=== PATIENT | male | born 1990 | race Caucasian/White ===

== ENCOUNTER 2019-08-28 22:35 | Emergency (ER) | payer MEDICAID, SELFPAY ==
[2019-08-28] VITALS (9 sets, daily range): BP systolic 123–165; BP diastolic 83–106; PULSE 59–77; RESP 11–22; TEMP 36.3; O2SAT 97–100
--- NOTE | 2019-08-28 22:56 | ED.GENADUL_ITS ---
Discharge Plan Disposition Patient Disposition: HOME Discharge Details Chief Complaint: Cellulitis Clinical Impression: Cutaneous abscess of perineum Primary Care Provider: Alverto Ferrer ED Provider: Ty Barajas Home Meds and New Rx's Prescriptions: New cephalexin [Keflex] 500 mg capsule 500 mg PO QID Qty: 39 RF: 0 No Action ibuprofen 200 mg capsule 200 mg PO Q6H PRNRF: 0 Discharge Instructions Instructions: Abscess (ED) Additional Instructions: Please take ibuprofen over the counter. Take 600mg by mouth every 6 hours as needed for pain. Please take acetaminophen (tylenol) - 650mg every 6 hours by mouth as needed for pain. Please take antibiotics as prescribed. Please follow-up with general surgery. Call to schedule an appointment to be seen this week. Return to the ER immediately for any worsening or new concerning symptoms. Stand Alone Forms: Work Release Referrals: Mindy Manzo MD [ [facility] STAFF PHYSICIAN] - Discharge Data Discharge Date/Time-TO BE ENTERED AT DEPARTURE: 08/29/19 00:40 Medical Decision Making <Des Llanos MD - Last Filed: 09/20/19 17:15> 23:20 -- 28-year-old male here with recurrent swelling and tenderness midline perineum. Mild erythema localized to the area with no crepitus. Patient is afebrile and hemodynamically stable. Fingerstick gluc nl. I called and spoke with Dr. Manzo, on-call for surgery, I discussed ED presentation and and my concerns for perineal abscess. I relayed physical findings and history. Dr. Manzo recommends bedside incision and drainage be performed by me. She recommended a small wick be placed. She recommended di scharge on oral antibiotics with plan for follow-up in the clinic for reassessment this week. Plan for procedural sedation and incision and drainage. We will give Ancef IV. 23:55 --Incision of drainage performed under procedural sedation was provided by Dr. Barajas. Purulent drainage was sent for culture. Quarter inch gauze was used to pack the abscess and provide wick. Plan will be for discharge with outpatient follow-up to be scheduled for early this week. <Ty Barajas DO - Last Filed: 08/29/19 00:26> 28-year-old male who presented with perineal abscess, was seen and assessed by Dr. Des Llanos, sedated and had an incision and drainage performed by Dr. Llanos, where I performed the sedation. Sedation component went very well with no complications using ketofall. Patient was signed out to me for the medication wear off and his antibiotics to finish. On reassessment the patient is doing extremely well, he demonstrates normal vital signs, he is back to his normal mental status, and shows no signs of residual anesthesia effect. He is finished his antibiotics and is done well. I have given him a work note at his request. We again discussed the discharge instructions and he was able to repeat them all, and was also easily heard by the family member who was in the room. Patient will be discharged home with follow-up with surgery. Discussed red flags which to return. I have extensively reviewed the treatment plan and discharge instructions with the patient and their family. I have addressed all patient concerns at this time. The patient and family was made aware of what symptoms to monitor for that would warrant a return to the emergency department. Discussed the plan with the patient and family, they demonstrate verbal understanding and agreement with our assessment and plan at this time. HPI <Des Llanos MD - Last Filed: 09/20/19 17:15> General Mode of arrival: ambulatory . Date/Time Provider Initiated Documentation: 08/28/19 22:38 . Limitations to Documentation: no limitations . Information obtained by: patient . HPI Narrative: 28-year-old male smoker presents with chief complaint of painful perineum. Symptoms started 2 to 3 days ago and have persisted and worsened since onset. Worse on palpation. Pain is currently severe. He has associated swelling in the area. No fever. Patient apparently had same inflammation 4 months ago. He was seen at outside hospital in [place], had CT imaging and was told he had a cyst and that he was to follow-up with general surgery. He was prescribed an antibiotic. Unfortunately was uninsured at the time and did not follow-up with surgery. Inflammation did resolve with antibiotics. Related Data Home Medications Medication Instructions Recorded Confirmed cephalexin [Keflex] 500 mg PO QID #39 cap 08/28/19 08/30/19 ibuprofen 200 mg capsule 200 mg PO Q6H PRN 08/30/19 08/30/19 Previous Rx's Medication Instructions Recorded cephalexin [Keflex] 500 mg PO QID #39 cap 08/28/19 Allergies Allergy/AdvReac Type Severity Reaction Status Date / Time No Known Allergies Allergy Verified 08/30/19 11:20 General Stated Complaint: Cellulitis PEREZ: 4 Review of Systems <Des Llanos MD - Last Filed: 09/20/19 17:15> Constitutional Constitutional: Denies fever(s) Genitourinary Genitourinary: Denies genital lesions and Denies dysuria PFSH <Des Llanos MD - Last Filed: 09/20/19 17:15> Medical History (Updated 08/30/19 @ 11:36 by Mindy Manzo MD) No acute medical problems (Acute) Perineal abscess (Acute) Surgical History (Updated 08/30/19 @ 11:36 by Mindy Manzo MD) Status post incision and drainage (Acute ~08/28/19) Family History Mother Depression Hypertension Father Alcohol abuse Depression Substance abuse Sister Alcohol abuse Depression Substance abuse Maternal Grandfather Alcohol abuse Cancer Hypertension Paternal Grandfather Alcohol abuse Asthma Cancer Depression Maternal Grandmother Alcohol abuse Depression Diabetes Hypertension Paternal Grandmother Cancer Hypertension Social History Smoking/Tobacco Use Status: Current every day Tobacco Type: cigarettes Tobacco: How many years used: 11 Quit status: not considering quitting Smoking risk assessment performed?: Yes Alcohol Intake: current Alcohol Intake frequency: holidays/special occasions only Alcohol type: beer and hard liquor Drug use: Occasionally Substance use type: marijuana Caregiver/Support person: No Household members: family Housing: apartment Communication Needs: None Do you need help understanding health information?: Often Pets and animals: Yes Pets and animals: dog(s) Sexually active: Yes Do you think of yourself as: straight/heterosexual Current gender identity: male What is your relationship status?: living with partner How often do you talk on the phone with friends or family?: three or more times per week How often do you get together with friends or relatives?: three or more times per week How often do you attend sikh or rastafarian services?: decline to answer Do you belong to any clubs or organized social groups?: no Panel score (0-1 are the most socially isolated patients): 2 What type of physical activity do you participate in: none Frequency: does not exercise Anna/Jain: None Special anna needs: No Seatbelt use: always Helmet use: Yes Helmet use: always Drive intox or ride w/intox 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 Additional Social history: pt is not alone to assess privately Exam <Des Llanos MD - Last Filed: 09/20/19 17:15> Const General: cooperative and no acute distress HENMT Mouth: moist mucous membranes Throat: posterior oropharynx normal Eyes Conjunctivae: normal conjunctivae Resp Auscultation: clear to auscultation bilaterally, no rales, no rhonchi and no wheezes Cardio Jugular venous pressure: no JVD Rate: regular rate and not tachycardic Rhythm: regular rhythm GI Palpation: soft, not firm, no guarding, no masses, not rigid and nontender Skin Lesions: lesion noted (2x3cm area of fluctuance midline perineum with no erythema or crepitus) Neuro General: alert, awake and tone normal Extrem General: no edema Psych Appearance: grossly normal Mental Status: mental status grossly normal Course <Des Llanos MD - Last Filed: 09/20/19 17:15> Vital Signs Vital signs: Vital Signs Temperature 36.3 C L 08/28/19 22:40 Pulse 77 08/28/19 22:40 Respiratory Rate 18 08/28/19 22:40 Blood Pressure 140/103 H 08/28/19 22:40 Pulse Oximetry 97 08/28/19 22:40 Temperature 36.3 C L 08/28/19 22:40 Temperature Source Skin 08/28/19 22:40 Pulse 77 08/28/19 22:40 Respiratory Rate 18 08/28/19 22:40 Respiratory Effort Non-Labored 08/28/19 22:43 Blood Pressure 140/103 H 08/28/19 22:40 Pulse Oximetry 97 08/28/19 22:40 Pain Level 8 08/28/19 22:40 Procedures <Des Llanos MD - Last Filed: 09/20/19 17:15> Abscess I/D Site: Other (perineum) Sedation/analgesia: Propofol and Other (ketamine) Local Anesthetic: Lidocaine 2% and With Epi Amount of anesthesia used (mL): 6 Technique: Incised with #11 Blade (1cm superficial incision ) Amount of fluid expressed (mL): 8 Irrigation: Yes Packing used?: Iodoform <Ty Barajas DO - Last Filed: 08/29/19 00:26> Procedural Sedation Indication: incision and drainage of absess ASA Class: I Time of Last PO Intake: 18:00 Preparation: cardiac specialist applied, pulse oximeter, capnometry used, suppleme ntal O2 applied, suction/airway equipment at bedside and IV secured Ketamine: IV Ketamine dose (mg): 60 IV Propofol dose (mg): 60 Patient Tolerated Procedure: well and no complications Complications: none Sign Out <Des Llanos MD - Last Filed: 09/20/19 17:15> Sign Out Data: Sign Out Comment: Care signed out to Dr. Barajas with plan to reassess patient post procedurally and disposition patient. Last updated by Des Llanos MD at 08/28/19 23:54
[2019-08-28] MEDS: ceFAZolin 1 GM/50 ML BAG IVPB (23:52)
[2019-08-28] MEDS: Propofol 200 MG/20 ML VIAL 100 MG IVP (23:52)
[2019-08-29] VITALS (7 sets, daily range): BP systolic 128–141; BP diastolic 70–88; PULSE 69–84; RESP 12–20; O2SAT 99
--- NOTE | 2019-08-29 00:21 | RESPIRATORY ---
08/28/19-Pt here for a sedation with a scrotal abscess. BP 123//83.Pre- HR 77, SPO2 99% on 2 LPM NC, ETCO2 40mmhg, RR 20. During HR 70,100% on 2 LPM NC. ETCO2 31mmhg, RR 14, BP 165/106. Post BP 128/70, HR 68, SPO2 99%, ETCO2 31mmhg, RR 20. Pt is now alert and talking.
== END 2019-08-29 00:40 | disposition home or self-care (01) ==
PROVIDERS: Emergency Provider Student in an Organized Health Care Education/Training Program; PCP Family Medicine
DX: L02.215 Cutaneous abscess of perineum (principal)
CPT/HCPCS: 36416; 46050; 82962; 96365; 96375; 99284; 87070; 99282; J0690; J2704

== ENCOUNTER 2020-10-15 23:13 | Emergency (ER) | payer MEDICAID, SELFPAY ==
--- NOTE | 2020-10-15 23:35 | ED.GENADUL_ITS ---
Discharge Plan Disposition Patient Disposition: HOME Condition: Good Discharge Details Clinical Impression: Back pain Primary Care Provider: Alverto Ferrer ED Provider: Ty Barajas Home Meds and New Rx's Prescriptions: New cyclobenzaprine 10 mg tablet 10 mg PO TID Qty: 14 RF: 0 lidocaine [Lidoderm] 1 PATCH patch 1 patch Topical Q24H Qty: 5 RF: 0 prednisone 50 MG tablet 50 mg PO DAILY Qty: 5 RF: 0 Continued ibuprofen 200 mg capsule 200 mg PO Q6H PRNRF: 0 Discharge Instructions Instructions: Back Pain (ED) Additional Instructions: At this time your signs and symptoms are clinically consistent with a back sprain. This can cause significant pain and take a fair bit of time to heal. I expect 1 to 2 months for potential resolution. In the meantime do not lift anything greater than 5 pounds for the next 2 weeks. Avoid any significant vigorous physical activity. Perform easy gentle regular activities at home without any significant bending or lifting. Please take the steroids as directed. You have been given a prescription for Lidoderm patch. If your insurance does not cover this you can get [id number] Lidoderm patches at 4% which are almost just as effective. Please take the Flexeril as directed but do not take it when driving or operating any vehicles or heavy machinery, swimming, taking long baths, or operating firearms. Please use a heating pad as often as possible on your back. Perform daily gentle stretches on your back. Please continue to take the Tylenol and Motrin. You can take 1000 mg of Tylenol every 6 hours and 600 mg of ibuprofen every 6 hours. If you notice any worsening of your symptoms, or any new symptoms such as vomiting, diarrhea, fever, chills, shortness of breath, chest pain, numbness or tingling in your groin or legs, weakness in your legs, loss of control for your bowels or bladder, or fainting , please return immediately to the emergency department for reevaluation. Please follow up with your primary care provider as soon as possible for reassessment and reevaluation. As always, it was a pleasure participating in your medical care today. Stand Alone Forms: Work Release Referrals: Alverto Ferrer. [Primary Care Provider] - Discharge Data Discharge Date/Time-TO BE ENTERED AT DEPARTURE: 10/15/20 23:45 Medical Decision Making This is a 30-year-old male who presents today for back pain. Patient states he has a history of throwing out his back in the past. 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 He states that he has had particularly 2-3 busy days with a significant amount of work, lifting, and back movements over the last few days. He states that gradually towards the end of his work his pain began to increase in his back and he developed a mild sore back in the left lower region, went to bed last night and when he woke up his back was notably worse throughout the day today. He also developed some mild tingling on the lateral aspect of his left lower extremity medially. He denies any focal episode that suddenly worsened his pain. He denies hearing any popping sounds in his back. Patient denies any saddle anesthesia, numbness or tingling in the groin, change in sensation when wiping. Patient denies any change in sensation during sexual intercourse, difficulty achieving or maintaining an erection or ej aculation, bowel or bladder incontinence, leakage, or retention. Patient denies any weakness in the lower extremities, atypical falls or imbalance. He has no other complaints at this time. He denies any history of IV or illicit drug use. He denies any fever or chills. He denies any trauma to his back. Exam is notably reassuring. He demonstrates left lower lumbar paraspinal spasm with mild tenderness. No evidence of significant midline tenderness. No saddle anesthesia, he has good reflexes, good neurovascular exam. Good sensation throughout. Symptoms are clinically inconsistent at this time with cauda equina syndrome, spinal epidural abscess, or significant neurovascular compromise. No indication for emergent MRI or radiographic imaging at this time. With the notable paraspinal spasm, I suspect he has mild peripheral nerve irritation in conjunction with notable paraspinal spasm. Will give Flexeril, steroids, recommend NSAIDs and Lidoderm patch. Will give work note, recommend avoiding any heavy lifting, discussed red flags which to return. I have extensively reviewed the treatment plan and discharge instructions with the patient. I have addressed all patient concerns at this time. The patient was made aware of what symptoms to monitor for that would warrant a return to the emergency department. Discussed the plan with the patient, they demonstrate verbal understanding and agreement with our assessment and plan at this time. The documentation in this chart was dictated using [employer] dictation software. Please excuse any dictation errors. HPI General Date/Time Provider Initiated Documentation: 10/15/20 23:14 . HPI Narrative: This is a 30-year-old male who presents today for back pain. Patient states he has a history of throwing out his back in the past. 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 He states that he has had particularly 2-3 busy days with a significant amount of work, lifting, and back movements over the last few days. He states that gradually towards the end of his work his pain began to increase in his back and he developed a mild sore back in the left lower region, went to bed last night and when he woke up his back was notably worse throughout the day today. He also developed some mild tingling on the lateral aspect of his left lower extremity medially. He denies any focal episode that suddenly worsened his pain. He denies hearing any popping sounds in his back. Patient denies any saddle anesthesia, numbness or tingling in the groin, change in sensation when wiping. Patient denies any change in sensation during sexual intercourse, difficulty achieving or maintaining an erection or ejaculation, bowel or bladder incontinence, leakage, or retention. Patient denies any weakness in the lower extremities, atypical falls or imbalance. He has no other complaints at this time. He denies any history of IV or illicit drug use. He denies any fever or chills. He denies any trauma to his back. Related Data Home Medications Medication Instructions Recorded Confirmed ibuprofen 200 mg capsule 200 mg PO Q6H PRN 08/30/19 08/21/20 cyclobenzaprine 10 mg PO TID #14 tab 10/15/20 lidocaine [Lidoderm] 1 patch TOPICAL Q24H #5 ea 10/15/20 prednisone 50 mg PO DAILY #5 tab 10/15/20 Previous Rx's Medication Instructions Recorded cyclobenzaprine 10 mg PO TID #14 tab 10/15/20 lidocaine [Lidoderm] 1 patch TOPICAL Q24H #5 ea 10/15/20 prednisone 50 mg PO DAILY #5 tab 10/15/20 Allergies Allergy/AdvReac Type Severity Reaction Status Date / Time No Known Allergies Allergy Verified 08/21/20 11:22 General PEREZ: 4 Review of Systems All systems reviewed & are unremarkable except as noted in HPI and below PFSH Medical History No acute medical problems Perineal abscess Surgical History Status post incision and drainage (~08/28/19) Family History Mother Depression Hypertension Father Alcohol abuse Depression Substance abuse Sister Alcohol abuse Depression Substance abuse Maternal Grandfather Alcohol abuse Cancer Hypertension Paternal Grandfather Alcohol abuse Asthma Cancer Depression Maternal Grandmother Alcohol abuse Depression Diabetes Hypertension Paternal Grandmother Cancer Hypertension Social History Smoking/Tobacco Use Status: Current every day Tobacco Type: cigarettes Tobacco: How many years used: 11 Quit status: not considering quitting Second Hand Exposure: Yes Smoking risk assessment performed?: Yes Alcohol Intake: never Drug use: Occasionally Substance use type: marijuana Caregiver/Support person: No Household members: significant other Housing: apartment Communication Needs: None Do you need help understanding health information?: Often Pets and animals: Yes Pets and animals: dog(s) Sexually active: Yes Do you think of yourself as: straight/heterosexual Current gender identity: male What is your relationship status?: living with partner How often do you talk on the phone with friends or family?: three or more times per week How often do you get together with friends or relatives?: once per week How often do you attend gnosticist or moravian services?: decline to answer Do you belong to any clubs or organized social groups?: no Panel score (0-1 are the most socially isolated patients): 2 What type of physical activity do you participate in: none Frequency: does not exercise Anna/Confucianism: None Special anna needs: No Seatbelt use: sometimes Helmet use: Yes Helmet use: always Drive intox or ride w/intox 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 3.ENT: Atraumatic external nose and ears. Moist MM. Neck: Symmetric, trachea midline, No thyromegaly. 4.CVS: +S1/S2, No murmurs or gallops. Peripheral pulses 2+ and equal in all extremities. Brisk capillary refill in all extremities. 5.RESP: Unlabored respiratory effort. Clear to auscultation bilaterally. No wheezes rales or rhonchi 6.GI: Soft, Nontender/Nondistended, No hepatosplenomegaly. No guarding or rebound. 7.MSK: Normocephalic/Atraumatic, Extremities w/o deformity or ttp No cyanosis or clubbing, Normal movement of all extremities No midline tenderness to palpation over the CTLS spine. Mild left paraspinal pain in the left lower lumbar region. Normal ROM in flexion, extension, side bend, and rotation. Patient has +5 out of 5 strength in the lower extremities in dorsiflexion and plantarflexion, knee flexion and extension, hip flexion and extension. Normal strength for dorsiflexion and plantar flexion of the great toe bilaterally. There is +2 over 2 dorsalis pedis pulses bilaterally. There is normal sensation to the skin with light touch at the foot, knee, and hip. Normal saddle sensation. Good sensation over the deep sural nerve area bilaterally. Rectal exam demonstrates good rectal tone and perirectal sensation. Reflexes are +2 over 4 in the patellar reflex bilaterally. +5 out of 5 strength in the medial, ulnar, radial nerve distribution bilaterally in the hands as well as intact light touch sensation to these dermatomes on the hands 8.Skin: Warm, Dry. No rashes or lesions. 9.Neuro: almond grinder II-XII grossly intact. Sensation grossly intact, no focal neurologic deficits. 10.Psych: (AAO) x3. Appropriate mood and affect
[2020-10-15] MEDS: Lidocaine 5% Patch 1 PATCH TP (23:43)
[2020-10-15] MEDS: Cyclobenzaprine 10 MG TAB, 3 TABS/BTL PO (23:44)
== END 2020-10-15 23:45 | disposition home or self-care (01) ==
PROVIDERS: Emergency Provider Student in an Organized Health Care Education/Training Program; PCP Family Medicine
DX: M54.5 Low back pain (principal)
CPT/HCPCS: 99283

== ENCOUNTER 2021-01-15 02:44 | Outpatient (CLI) | payer MEDICAID, SELFPAY ==
--- NOTE | 2021-01-15 08:00 | DI.MRI_ITS ---
Exam(s) MR LUMBAR SPINE WO EXAM: MR LUMBAR SPINE WO CLINICAL HISTORY: worsening low back pain with new nisreen leg weakness,R29.898,M54.9. TECHNIQUE: Multiplanar multisequence MRI of the Lumbar spine was performed. COMPARISON: No exams were available for comparison FINDINGS: Bones: The last intervertebral disc space is designated the L5/S1 level for the numbering purpose of this examination. The vertebral body heights are well maintained. Alignment is satisfactory. The si gnal characteristics are unremarkable. Cord: The conus tip ends at the T12 level. It is of normal size and signal intensity. T12-L1: No disc herniations or bulges are present. No central spinal canal or neural foraminal stenos is. L1-2: No disc herniations or bulges are present. No central spinal canal or neural foraminal stenosis . L2-3: No disc herniations or bulges are present. No central spinal canal or neural foraminal stenosis . L3-4: No disc herniations or bulges are present. No central spinal canal or neural foraminal stenosis . L4-5: There is a mild diffuse disc bulge. Mild disc desiccation. No central spinal canal or neural foraminal stenosis. L5-S1: There is a mild diffuse disc bulge. Mild disc desiccation. No central spinal canal or neural foraminal stenosis. Soft tissues: The visualized SI joints and sacrum are well maintained. The paraspinal soft tissues ar e unremarkable. IMPRESSION: No evidence of significant spinal stenosis or neuroforaminal narrowing. DATA REPOSITORY:
== END 2021-01-15 03:04 ==
PROVIDERS: PCP Family Medicine; Visit Provider Family Medicine
DX: M54.5 Low back pain (principal); R29.898 Other symptoms and signs involving the musculoskeletal system; M51.17 Intervertebral disc disorders with radiculopathy, lumbosacral region
CPT/HCPCS: 72148

== ENCOUNTER 2021-04-22 22:04 | Emergency (ER) | payer MEDICAID, SELFPAY ==
[2021-04-22 22:16] VITALS: BP 134/72; PULSE 71; RESP 18; TEMP 36.8; O2SAT 99
[2021-04-22 22:39] VITALS: O2SAT 99
--- NOTE | 2021-04-22 22:47 | ED.GENADUL_ITS ---
Discharge Plan Disposition Patient Disposition: HOME Condition: Good Discharge Details Clinical Impression: Lumbago Primary Care Provider: Alverto Ferrer ED Provider: Ty Barajas Home Meds and New Rx's Prescriptions: New cyclobenzaprine 10 mg tablet 10 mg PO TID Qty: 14 RF: 0 prednisone 50 MG tablet 50 mg PO DAILY Qty: 5 RF: 0 Continued lidocaine [Lidoderm] 5 % adhesive patch,medicated 1 patch Topical Q24H Qty: 15 RF: 2 ibuprofen 200 mg capsule 200 mg PO Q6H PRNRF: 0 meloxicam 15 mg tablet 15 mg PO DAILY Qty: 30 RF: 2 Discontinued cyclobenzaprine 10 mg tablet 10 mg PO Q8H PRN (Reason: muscle spasm) Qty: 60 RF: 0 Discharge Instructions Instructions: Low Back Strain (ED) Additional Instructions: At this time your signs and symptoms are clinically consistent with a back sprain. This can cause significant pain and take a fair bit of time to heal. I expect 1 to 2 months for potential resolution. In the meantime do not lift anything greater than 10 pounds for the next 2 weeks. Avoid any significant vigorous physical activity. Perform easy gentle regular activities at home without any significant bending or lifting. Please take the steroids as directed. please continue to use your home Lidoderm patch. Please take the Flexeril/cyclobenzaprine as directed but do not take it when driving or operating any vehicles or heavy machinery, swimming, taking long baths, or operating firearms. Please use a heating pad as often as possible on your back. Perform daily gentle stretches on your back. Please continue to take the Tylenol and Motrin. You can take 1000 mg of Tylenol every 6 hours and 600 mg of ibuprofen every 6 hours. If you notice any worsening of your symptoms, or any new symptoms such as vomiting, diarrhea, fever, chills, shortness of breath, chest pain, numbness or tingling in your groin or legs, weakness in your legs, loss of control for your bowels or bladder, or fainting , please return immediately to the emergency department for reevaluation. Please follow up with your primary care provider as soon as possible for reassessment and reevaluation. As always, it was a pleasure participating in your medical care today. We have also given you [place] pain pills. Please only take these as needed for breakthrough pain or to sleep. They do have Tylenol in them, so only take them with 500 mg of Tylenol. Please follow-up with your scheduled appointment at the [facility] pain/spine clinic. Stand Alone Forms: Work Release Referrals: Alverto Ferrer. [Primary Care Provider] - Medical Decision Making 30-year-old male with a past medical history of low back pain, with an MRI of the spine in January of this year, who presents today for low back pain. Patient was at work lifting objects with twisted suddenly, after which point he had a notable spasm in his back, radiating to his buttock. Pain is primarily on the right. He has been taking cyclobenzaprine but he only has a few pills left, he use the Lidoderm patch, and Motrin. Unfortunately this did not improve his symptoms. Patient denies any saddle anesthesia, numbness or tingling in the groin, change in sensation when wiping. Patient denies any change in sensation during sexual intercourse, difficulty achieving or maintaining an erection or ejaculation, bowel or bladder incontinence, leakage, or retention. Patient denies any weakness in the lower extremities, atypical falls or imbalance. Patient does have an appointment with the spine and back pain clinic at [facility] in May. Patient told so does admit to using marijuana which he states does significantly help occasionally. No other complaints at this time. No other modifying factors. Physical exam demonstrates notable paraspinal spasms worse on the right than the left, no significant midline tenderness. No saddle anesthesia or decreased rectal tone, no clinical evidence of urinary retention. Muscle strength is good. Signs and symptoms at this time are consistent with back sprain with possible mild radiculopathy worsened by the sprain. MRI report is included below. No evidence of an acute life-threatening cord compressing or vascular compromise etiology at this time. At this time I see no indication for repeat imaging, as the patient symptoms are also inconsistent with cauda equina syndrome, epidural abscess, or other abnormality clinically. He has no fever or chills, does not use IV drugs. We will give the patient additional Flexeril for home, a steroid burst for mild radiculopathy, and recommend continued NSAIDs. We will give a Toradol shot here. We will give the patient 4 [place] pills to use at home as needed for breakthrough pain. Recommend continued follow-up with outpatient spine center. I have extensively reviewed the treatment plan and discharge instructions with the patient. I have addressed all patient concerns at this time. The patient was made aware of what symptoms to monitor for that would warrant a return to the emergency department. Discussed the plan with the patient, they demonstrate verbal understanding and agreement with our assessment and plan at this time. The documentation in this chart was dictated using [employer] dictation software. Please excuse any dictation errors. FINDINGS: Bones: The last intervertebral disc space is designated the L5/S1 level for the numbering purpose of this examination. The vertebral body heights are well maintained. Alignment is satisfactory. The signal characteristics are unremarkable. Cord: The conus tip ends at the T12 level. It is of normal size and signal intensity. T12-L1: No disc herniations or bulges are present. No central spinal canal or neural foraminal stenosis. L1-2: No disc herniations or bulges are present. No central spinal canal or neural foraminal stenosis. L2-3: No disc herniations or bulges are present. No central spinal canal or neural foraminal stenosis. L3-4: No disc herniations or bulges are present. No central spinal canal or neural foraminal stenosis. L4-5: There is a mild diffuse disc bulge. Mild disc desiccation. No central spinal canal or neural foraminal stenosis. L5-S1: There is a mild diffuse disc bulge. Mild disc desiccation. No central spinal canal or neural foraminal stenosis. Soft tissues: The visualized SI joints and sacrum are well maintained. The paraspinal soft tissues are unremarkable. IMPRESSION: No evidence of significant spinal stenosis or neuroforaminal narrowing. HPI General Date/Time Provider Initiated Documentation: 04/22/21 22:11 . HPI Narrative: 30-year-old male with a past medical history of low back pain, with an MRI of the spine in January of this year, who presents today for low back pain. Patient was at work lifting objects with twisted suddenly, after which point he had a notable spasm in his back, radiating to his buttock. Pain is primarily on the right. He has been taking cyclobenzaprine but he only has a few pills left, he use the Lidoderm patch, and Motrin. Unfortunately this did not improve his symptoms. Patient denies any saddle anesthesia, numbness or tingling in the groin, change in sensation when wiping. Patient denies any change in sensation during sexual intercourse, difficulty achieving or maintaining an erection or ejaculation, bowel or bladder incontinence, leakage, or retention. Patient denies any weakness in the lower extremities, atypical falls or imbalance. Patient does have an appointment with the spine and back pain clinic at [facility] in May. Patient told so does admit to using marijuana which he states does significantly help occasionally. No other complaints at this time. No other modifying factors. Related Data Home Medications Medication Instructions Recorded Confirmed ibuprofen 200 mg capsule 200 mg PO Q6H PRN 08/30/19 04/10/21 lidocaine 5 % topical patch 1 patch TOPICAL Q24H #15 ea 10/26/20 04/10/21 meloxicam 15 mg tablet 15 mg PO DAILY #30 tab 04/03/21 04/03/21 cyclobenzaprine 10 mg PO TID #14 tab 04/22/21 prednisone 50 mg PO DAILY #5 tab 04/22/21 Previous Rx's Medication Instructions Recorded lidocaine 5 % topical patch 1 patch TOPICAL Q24H #15 ea 10/26/20 meloxicam 15 mg tablet 15 mg PO DAILY #30 tab 04/03/21 cyclobenzaprine 10 mg PO TID #14 tab 04/22/21 prednisone 50 mg PO DAILY #5 tab 04/22/21 Allergies Allergy/AdvReac Type Severity Reaction Status Date / Time No Known Allergies Allergy Verified 04/03/21 10:49 General Stated Complaint: Nk/Back Pain PEREZ: 4 Review of Systems All systems reviewed & are unremarkable except as noted in HPI and below PFSH Medical History No acute medical problems Perineal abscess Surgical History Status post incision and drainage (~08/28/19) Family History Mother Depression Hypertension Father Alcohol abuse Depression Substance abuse Sister Alcohol abuse Depression Substance abuse Maternal Grandfather Alcohol abuse Cancer Hypertension Paternal Grandfather Alcohol abuse Asthma Cancer Depression Maternal Grandmother Alcohol abuse Depression Diabetes Hypertension Paternal Grandmother Cancer Hypertension Social History (Reviewed 04/22/21 @ 23:13 by LESLI Tineo Smoking/Tobacco Use Status: Current every day Tobacco Type: cigarettes Tobacco: How many years used: 11 Quit status: not considering quitting Second Hand Exposure: Yes Smoking risk assessment performed?: Yes Alcohol Intake: never Drug use: Occasionally Substance use type: marijuana Caregiver/Support person: No Household members: significant other Housing: apartment Communication Needs: None Do you need help understanding health information?: Often Pets and animals: Yes Pets and animals: dog(s) Sexually active: Yes Do you think of yourself as: straight/heterosexual Current gender identity: male What is your relationship status?: living with partner How often do you talk on the phone with friends or family?: three or more times per week How often do you get together with friends or relatives?: once per week How often do you attend temple or taoist services?: decline to answer Do you belong to any clubs or organized social groups?: no Panel score (0-1 are the most socially isolated patients): 2 What type of physical activity do you participate in: none Frequency: does not exercise Anna/Lutheran: None Special anna needs: No Seatbelt use: sometimes Helmet use: Yes Helmet use: always Drive intox 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 3.ENT: Atraumatic external nose and ears. Moist MM. Neck: Symmetric, trachea midline, No thyromegaly. 4.CVS: +S1/S2, No murmurs or gallops. Peripheral pulses 2+ and equal in all extremities. Brisk capillary refill in all extremities. 5.RESP: Unlabored respiratory effort. Clear to auscultation bilaterally. No wheezes rales or rhonchi 6.GI: Soft, Nontender/Nondistended, No hepatosplenomegaly. No guarding or rebound. 7.MSK: Normocephalic/Atraumatic, Extremities w/o deformity or ttp No cyanosis or clubbing, Normal movement of all extremities No midline tenderness to palpation over the CTLS spine. Patient does have notable spasms bilaterally, worse on the right than the left. Reproducible paraspinal tenderness around L4, L5, and S1. Normal ROM in flexion, extension, side bend, and rotation. Patient has +5 out of 5 strength in the lower extremities in dorsiflexion and plantarflexion, knee flexion and extension, hip flexion and extension. Normal strength for dorsiflexion and plantar flexion of the great toe bilaterally. There is +2 over 2 dorsalis pedis pulses bilaterally. There is normal sensation to the skin with light touch at the foot, knee, and hip. Normal saddle sensation. Good sensation over the deep sural nerve area bilaterally. Rectal exam demonstrates good rectal tone with good perirectal sensation. Reflexes are +2 over 4 in the patellar reflex bilaterally. +5 out of 5 strength in the medial, ulnar, radial nerve distribution bilaterally in the hands as well as intact light touch sensation to these dermatomes on the hands 8.Skin: Warm, Dry. No rashes or lesions. 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 Sensation grossly intact, no focal neurologic deficits. 10.Psych: (AAO) x3. Appropriate mood and affect Course Vital Signs Vital signs: Vital Signs Pulse Oximetry 99 04/22/21 22:39 Pulse Oximetry 99 04/22/21 22:39
[2021-04-22] MEDS: Ketorolac 30 MG/ML VIAL IM (23:04)
== END 2021-04-22 23:28 | disposition home or self-care (01) ==
PROVIDERS: Emergency Provider Student in an Organized Health Care Education/Training Program; PCP Family Medicine
DX: M54.5 Low back pain (principal); S39.82XA Other specified injuries of lower back, initial encounter; X50.1XXA Overexertion from prolonged static or awkward postures, initial encounter; Y99.0 Civilian activity done for income or pay
CPT/HCPCS: 96372; 99284; 99283; J1885

== ENCOUNTER 2022-09-04 19:42 | Emergency (ER) | payer MEDICAID, SELFPAY ==
--- NOTE | 2022-09-04 19:45 | RT.EKG_ITS ---
APPROVED REPORT Exam: Resting ECG Reason for Exam: Chest Pain Patient Location: E HR:78 bpm ECG Measurements Heart Rate 78 AXIS FL 192 P -22 QRSd 96 QRS -28 QT 346 T -3 QTc 394 Conclusion Sinus rhythm...normal P axis, V-rate 60- 99 Inferior infarct, old...Q >35mS, II III aVF. Sinus, Left axis, no stemi.
[2022-09-04 19:50] VITALS: BP 134/90; PULSE 79; RESP 20; TEMP 36.9; O2SAT 99
--- NOTE | 2022-09-04 20:22 | ED.GENADUL_ITS ---
Discharge Plan Disposition Patient Disposition: Home Condition: Stable Discharge Details Clinical Impression: Chest wall pain Primary Care Provider: Alverto Ferrer ED Provider: Heike Francisco Home Meds and New Rx's Prescriptions: Continued lidocaine [Lidoderm] 5 % adhesive patch,medicated 1 patch Topical Q24H Qty: 15 2RF ibuprofen 200 mg capsule 200 mg PO Q6H PRN meloxicam 15 mg tablet 15 mg PO DAILY Qty: 30 2RF cyclobenzaprine 10 mg tablet 10 mg PO TID Qty: 14 0RF prednisone 50 MG tablet 50 mg PO DAILY Qty: 5 0RF Discharge Instructions Instructions: Chest Wall Pain (ED) Additional Instructions: Your blood tests, EKG and imaging today are reassuring and show no evidence of acute concerning or significant findings. Drink plenty of fluids and get plenty of rest. Alternate tylenol and motrin as needed and directed for pain. Follow-up with your primary care doctor in 1 week. Return to the emergency department with any worsening or new concerning symptoms. Stand Alone Forms: Work Release Discharge Data Discharge Physician: Heike Francisco Medical Decision Making 1999 -- 31-year-old male presents for left anterior chest pain since yesterday afternoon with occasional numbness in his left shoulder. EKG notes a rate of 78, sinus, left axis, no STEMI and nondiagnostic. Vitals within normal limits. Patient appears comfortable and nontoxic. He has left anterior chest tenderness to palpation without evidence of cellulitis, trauma or rash. He has normal range of motion of his left upper extremity with distal pulses intact. Suspect musculoskeletal etiology considering his pain is reproducible with movement and to touch. History and presentation does not appear consistent with ACS, PE or dissection. Will obtain screening labs, chest x-ray and give a dose of Toradol, Lidoderm patch and reassess. 2300 --labs and imaging reviewed and unremarkable. Patient reassessed and he states he has no significant improvement of his symptoms but he would like to go home. He is requesting a work note. Advised to alternate ice and heat, Tylenol and Motrin. Advised to follow up with the primary care doctor for re-evaluation. Usual and customary return precautions given prior to discharge. Medical Records Medical records reviewed: Yes I reviewed the patient's medical records. Imaging Data Radiologic Study: Radiologist's impression: XR Chest Exam date and time: 09/04/2022 21:09 Age: 31 years old Clinical indication: Other: L side chest pain, R/O acute disease TECHNIQUE: Imaging protocol: Radiologic exam of the chest. Views: 2 views. COMPARISON: No relevant prior studies available. FINDINGS: Lungs: No consolidation. Pleural spaces: No pleural effusion. No pneumothorax. Heart/Mediastinum: No cardiomegaly. Bones/joints: No acute fracture.? IMPRESSION: No acute cardiopulmonary pathology. Lab Data Lab results reviewed: Yes I reviewed the patient's lab results. Labs: Laboratory Tests Range/Units 09/04/22 09/04/22 09/04/22 20:00 20:00 20:00 WBC (4.4-10.8) 10^3/uL RBC (4.36-5.78) 10^6/uL Hgb (13.5-17.5) g/dL Hct (40.0-50.0) % MCV (80-95) fL MCH (27.0-33.0) pg MCHC (32.0-36.0) % RDW (11.8-14.1) % Plt Count (130-400) 10^3/uL MPV (8.0-11.0) fL Immature Gran % Neutrophils % Lymphocytes % Monocytes % Eosinophils % Basophils % Nucleated RBC % (0.0-0.3) % Absolute Neutrophils (1.2-6.7) 10^3/uL Absolute Lymphocytes (1.2-3.4) 10^3/uL Absolute Monocytes (0.1-0.8) 10^3/uL Absolute Eosinophils (0.0-0.7) 10^3/uL Absolute Basophils (0.0-0.2) 10^3/uL D-Dimer (<500) ng/mlFEU 256 Sodium (136-145) mmol/L 140 Potassium (3.5-5.1) mmol/L 4.1 Chloride (98-107) mmol/L 105 Carbon Dioxide (21.0-32.0) mmol/L 26.4 Anion Gap (3-11) mmol/L 8.6 BUN (7-18) mg/dL 14 Creatinine (0.70-1.30) mg/dL 1.0 Est GFR (CKD-EPI 2020) (mL/min/1.73m2) 104.48 Glucose (74-106) mg/dL 114 H Calcium (8.5-10.1) mg/dL 9.4 Magnesium (1.8-2.4) mg/dL 2.0 Total Bilirubin (0.2-1.0) mg/dL 0.6 AST (15-37) U/L 13 L ALT (16-63) U/L 19 Alkaline Phosphatase (46-116) U/L 85 Troponin I (<or=60) ng/L < 50 Total Protein (6.4-8.2) g/dL 7.8 Albumin (3.4-5.0) g/dL 4.3 Lipase (73-393) U/L 75 Range/Units 09/04/22 20:00 WBC (4.4-10.8) 10^3/uL 8.00 RBC (4.36-5.78) 10^6/uL 5.49 Hgb (13.5-17.5) g/dL 15.9 Hct (40.0-50.0) % 46.8 MCV (80-95) fL 85 MCH (27.0-33.0) pg 29.0 MCHC (32.0-36.0) % 34.0 RDW (11.8-14.1) % 12.3 Plt Count (130-400) 10^3/uL 161 MPV (8.0-11.0) fL 10.9 Immature Gran % 0.3 Neutrophils % 57.7 Lymphocytes % 30.4 Monocytes % 8.3 Eosinophils % 2.8 Basophils % 0.5 Nucleated RBC % (0.0-0.3) % 0.0 Absolute Neutrophils (1.2-6.7) 10^3/uL 4.63 Absolute Lymphocytes (1.2-3.4) 10^3/uL 2.43 Absolute Monocytes (0.1-0.8) 10^3/uL 0.66 Absolute Eosinophils (0.0-0.7) 10^3/uL 0.22 Absolute Basophils (0.0-0.2) 10^3/uL 0.04 D-Dimer (<500) ng/mlFEU Sodium (136-145) mmol/L Potassium (3.5-5.1) mmol/L Chloride (98-107) mmol/L Carbon Dioxide (21.0-32.0) mmol/L Anion Gap (3-11) mmol/L BUN (7-18) mg/dL Creatinine (0.70-1.30) mg/dL Est GFR (CKD-EPI 2020) (mL/min/1.73m2) Glucose (74-106) mg/dL Calcium (8.5-10.1) mg/dL Magnesium (1.8-2.4) mg/dL Total Bilirubin (0.2-1.0) mg/dL AST (15-37) U/L ALT (16-63) U/L Alkaline Phosphatase (46-116) U/L Troponin I (<or=60) ng/L Total Protein (6.4-8.2) g/dL Albumin (3.4-5.0) g/dL Lipase (73-393) U/L ECG Data Attestation: I personally reviewed and interpreted this ECG (s) as follows: Interpretation: Rate of 78, sinus, left axis, no STEMI HPI General Mode of arrival: ambulatory . Date/Time Provider Initiated Documentation: 09/04/22 20:19 . Limitations to Documentation: no limitations . Information obtained by: patient . HPI Narrative: Patient is a 31-year-old male who presents with left-sided chest pain since yesterday afternoon. 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 He states the pain has been constant and sharp located in his left anterior chest. He states he does note pain that is worse with movement and changing position, mainly when lying flat. Patient denies any known injury, fever, cough, shortness of breath, nausea, vomiting or dizziness. He has not taken medication for the pain. Patient also endorses that he has occasional numbness in his left shoulder since the left chest pain started but denies any left shoulder pain. Related Data Home Medications Medication Instructions Recorded Confirmed ibuprofen 200 mg capsule 200 mg PO Q6H PRN 08/30/19 04/10/21 lidocaine 5 % topical patch 1 patch topical Q24H #15 ea 10/26/20 04/10/21 (Lidoderm) meloxicam 15 mg tablet 15 mg PO DAILY #30 tabs 04/03/21 04/03/21 cyclobenzaprine 10 mg tablet 10 mg PO TID #14 tabs 04/22/21 prednisone 50 mg tablet 50 mg PO DAILY #5 tabs 04/22/21 Previous Rx's Medication Instructions Recorded lidocaine 5 % topical patch 1 patch topical Q24H #15 ea 10/26/20 (Lidoderm) meloxicam 15 mg tablet 15 mg PO DAILY #30 tabs 04/03/21 cyclobenzaprine 10 mg tablet 10 mg PO TID #14 tabs 04/22/21 prednisone 50 mg tablet 50 mg PO DAILY #5 tabs 04/22/21 Allergies Allergy/AdvReac Type Severity Reaction Status Date / Time No Known Allergies Allergy Verified 04/03/21 10:49 General Stated Complaint: Chest Pain PEREZ: 3 Review of Systems All systems reviewed & are unremarkable except as noted in HPI and below Constitutional Constitutional: Reports as per HPI, Denies chills and Denies fever(s) Eyes Eyes: Denies blurry vision ENT Ears, Nose, Mouth, and Throat: Denies dizziness, Denies sore throat and Denies throat swelling Cardiovascular Cardiovascular: Reports chest pain and Denies dyspnea Respiratory Respiratory: Denies cough and Denies dyspnea Gastrointestinal Gastrointestinal: Denies abdominal pain, Denies diarrhea and Denies vomiting Genitourinary Genitourinary: Denies hematuria and Denies dysuria Musculoskeletal Musculoskeletal: Denies back pain and Denies numbness Integumentary/Breasts Skin/Breast: Denies lesions and Denies rash Neurologic Neurologic: Denies dizziness, Denies localized weakness and Denies numbness Allergic/Immunologic Allergic/Immunologic: Denies throat swelling PFSH All Active Problems (Updated 09/04/22 @ 23:06 by Heike Francisco DO) Lumbago (Acute) Chest wall pain (Acute) Bilateral leg weakness (Acute) Back pain (Acute) Well adult (Acute) Medical History No acute medical problems Perineal abscess Surgical History Status post incision and drainage (~08/28/19) Family History Mother Depression Hypertension Father Alcohol abuse Depression Substance abuse Sister Alcohol abuse Depression Substance abuse Maternal Grandfather Alcohol abuse Cancer Hypertension Paternal Grandfather Alcohol abuse Asthma Cancer Depression Maternal Grandmother Alcohol abuse Depression Diabetes Hypertension Paternal Grandmother Cancer Hypertension Social History Smoking/Tobacco Use Status: Current every day Tobacco Type: cigarettes Tobacco: How many years used: 11 Quit status: not considering quitting Second Hand Exposure: Yes Smoking risk assessment performed?: Yes Alcohol Intake: never Drug use: Occasionally Substance use type: marijuana Caregiver/Support person: No Household members: significant other Housing: apartment Communication Needs: None Do you need help understanding health information?: Often Pets and animals: Yes Pets and animals: dog(s) Sexually active: Yes Do you think of yourself as: straight/heterosexual Current gender identity: male What is your relationship status?: living with partner How often do you talk on the phone with friends or family?: three or more times per week How often do you get together with friends or relatives?: once per week How often do you attend tenriism or methodist services?: decline to answer Do you belong to any clubs or organized social groups?: no Panel score (0-1 are the most socially isolated patients): 2 What type of physical activity do you participate in: none Frequency: does not exercise Anna/Yazidism: None Special anna needs: No Seatbelt use: sometimes Helmet use: Yes Helmet use: always Drive intox or ride w/intox 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: No Do you feel safe at home: Yes Do you feel safe in your relationship?: Yes Victim of physical abuse: No Victim of emotional abuse: No Victim of sexual abuse: No Would you like helpful sources: No Additional Social history: pt is not alone to assess privately Exam Const General: cooperative, healthy appearing and no acute distress Orientation: alert, awake and oriented x3 HENMT Head: normal to inspection Face and sinus: normal facial exam Eyes General: appearance normal, both eyes and all related structures Pupils: PERRL EOM: EOM intact bilaterally Neck Neck: normal visual inspection and No submandibular swelling Lymphatic: no lymphadenopathy noted Chest Chest: normal inspection of the chest Chest/axillae images: 1. Localized tenderness to palpation of left anterior chest. There is no rash, lesions, erythema, edema or ecchymosis. Resp Effort & Inspection: normal respiratory effort and able to speak in complete sentences Auscultation: clear to auscultation bilaterally Cardio Rate: regular rate Rhythm: regular rhythm GI Inspection: normal to inspection Palpation: soft, not firm, not rigid and nontender Auscultation: hypoactive bowel sounds Skin General skin exam: no rashes or lesions noted Neuro General: patient alert, patient awake and patient oriented x3 Cognition: normal cognition Speech: speech normal Motor: muscle tone normal throughout Sensory Exam: no sensory deficits noted Extrem General: normal to inspection, full ROM and no edema Other: Normal range of motion of left upper extremity without pain or limitation. Left radial and ulnar pulses intact. Psych Appearance: grossly normal Mental Status: mental status grossly normal Speech and Movement: speech and movement normal Affect: normal affect Course Vital Signs Vital signs: Vital Signs Temperature 98.5 F 09/04/22 19:50 Pulse 79 09/04/22 19:50 Respiratory Rate 20 09/04/22 19:50 Blood Pressure 134/90 09/04/22 19:50 Pulse Oximetry 99 09/04/22 19:50 Temperature 98.5 F 09/04/22 19:50 Temperature Source Tympanic 09/04/22 19:50 Pulse 79 09/04/22 19:50 Respiratory Rate 20 09/04/22 19:50 Respiratory Effort 09/04/22 19:57 Respiratory Depth Normal 09/04/22 19:57 Respiratory Pattern Normal 09/04/22 19:57 Blood Pressure 134/90 09/04/22 19:50 Pulse Oximetry 99 09/04/22 19:50 Oxygen Delivery Method Room Air 09/04/22 19:50 Oxygen Flow Rate 0 09/04/22 19:50
--- NOTE | 2022-09-04 20:45 | DI.RAD_ITS ---
Exam(s) XR CHEST 2V PA LATERAL EXAM: XR CHEST 2V PA LATERAL CLINICAL HISTORY: L sided chest pain, r/o acute disease TECHNIQUE: 2D digital imaging was performed of the chest. Two images were obtained. PA and lateral views were obtained. COMPARISON: No exams were available for comparison FINDINGS: MEDIASTINUM: Normal. HEART: Normal. PULMONARY VASCULATURE: Normal. LUNGS: Clear. PLEURAL SPACE: No pleural effusion or pneumothorax. BONE:Within normal limits for the patient's age. OTHER FINDINGS:Normal. IMPRESSION: No acute pulmonary findings. DATA REPOSITORY: RADIATION DOSE DELIVERED:
[2022-09-04] MEDS: Ketorolac 30 MG/ML VIAL IVP (21:02)
[2022-09-04] MEDS: Lidocaine 5% Patch 1 PATCH TP (21:02)
[2022-09-04 21:03] LABS: Abs Immature Grans 0.02 10^3/uL (0.0-0.06); Absolute Basophil Count 0.04 10^3/uL (0.0-0.2); Absolute Eosinophil Count 0.22 10^3/uL (0.0-0.7); Absolute Lymphocyte Count 2.43 10^3/uL (1.2-3.4); Absolute Monocyte Count 0.66 10^3/uL (0.1-0.8); Absolute Neutrophil Count 4.63 10^3/uL (1.2-6.7); Basophils % 0.5; Eosinophils % 2.8; HCT 46.8 % (40.0-50.0); HGB 15.9 g/dL (13.5-17.5); Immature Grans % 0.3; Lymphocytes % 30.4; MCV 85 fL (80-95); MPV 10.9 fL (8.0-11.0); Monocytes % 8.3; Neutrophils % 57.7; Platelet Count 161 10^3/uL (130-400); RBC 5.49 10^6/uL (4.36-5.78); RDW 12.3 % (11.8-14.1); RDW-SD 38.5 fL
[2022-09-04 21:16] LABS: Lipase 75 U/L (73-393)
[2022-09-04 21:22] LABS: ALT 19 U/L (16-63); AST 13 U/L (15-37); Albumin 4.3 g/dL (3.4-5.0); Alkaline Phosphatase 85 U/L (46-116); Anion Gap 8.6 mmol/L (3-11); BUN 14 mg/dL (7-18); Bilirubin, Total 0.6 mg/dL (0.2-1.0); CO2 26.4 mmol/L (21.0-32.0); Calcium 9.4 mg/dL (8.5-10.1); Chloride 105 mmol/L (98-107); Estimated GFR 104.48 (mL/min/1.73m2); Glucose 114 mg/dL (74-106); Potassium 4.1 mmol/L (3.5-5.1); Sodium 140 mmol/L (136-145); Total Protein 7.8 g/dL (6.4-8.2); Troponin I < 50 ng/L (<or=60)
--- NOTE | 2022-09-04 21:28 | DI.VRAD_ITS ---
PROCEDURE INFORMATION: Exam: XR Chest Exam date and time: 09/04/2022 21:09 Age: 31 years old Clinical indication: Other: L side chest pain, R/O acute disease TECHNIQUE: Imaging protocol: Radiologic exam of the chest. Views: 2 views. COMPARISON: No relevant prior studies available. FINDINGS: Lungs: No consolidation. Pleural spaces: No pleural effusion. No pneumothorax. Heart/Mediastinum: No cardiomegaly. Bones/joints: No acute fracture. IMPRESSION: No acute cardiopulmonary pathology. Dictated and Authenticated by: Kenia Herrera MD. Ordering:OJ Burroughs MD
[2022-09-04 21:44] LABS: D-Dimer 256 ng/mlFEU (<500)
[2022-09-04 23:11] VITALS: BP 125/70; PULSE 69; RESP 16; O2SAT 99
[2022-09-04 23:13] VITALS: BP 120/82
== END 2022-09-05 02:25 | disposition home or self-care (01) ==
PROVIDERS: Emergency Provider Physician Assistant; PCP Family Medicine
DX: R07.89 Other chest pain (principal); R20.0 Anesthesia of skin
CPT/HCPCS: 36415; 80053; 83690; 93005; 96374; 99284; 71046; 83735; 84484; 85025; 85379; 93010; 99285; J1885

== ENCOUNTER → 2023-03-27 01:48 | Outpatient (CLI) | payer MEDICAID, SELFPAY ==
--- NOTE | 2023-03-27 12:51 | DI.RAD_ITS ---
Exam(s) XR LUMBAR SPINE COMP W FLEX/EX EXAM: XR LUMBAR SPINE COMP W FLEX/EX CLINICAL HISTORY: chronic left-sided low back pain w/out sciatica,M54.50. TECHNIQUE: 2D digital imaging was performed. Seven views. Flexion and extension lateral views were performed in addition to the routine views. COMPARISON: No exams were available for comparison FINDINGS: BONES: No fracture or destructive lesion. Vertebral body heights are maintained. No facet hypertroph y identified. DISKS: Slight narrowing L5-S1 disc space. Intervertebral disc spaces are otherwise maintained. ALIGNMENT: Lumbar spinal alignment is within normal limits. No spondylolysis or spondylolisthesis. N o subluxation with flexion or extension SOFT TISSUE: Normal. IMPRESSION: Mild narrowing of the L5-S1 disc space. DATA REPOSITORY: RADIATION DOSE DELIVERED:
== END ==
PROVIDERS: PCP Family Medicine; Visit Provider Family Medicine
DX: M51.36 Other intervertebral disc degeneration, lumbar region (principal)
CPT/HCPCS: 72114

== ENCOUNTER 2023-12-16 04:04 | Emergency (ER) | payer MEDICAID, SELFPAY ==
[2023-12-16 04:07] VITALS: BP 166/106; PULSE 78; RESP 16; TEMP 36.7; O2SAT 98
--- NOTE | 2023-12-16 04:10 | ED.GENADUL_ITS ---
Discharge Plan Disposition Patient Disposition: Home Condition: Good Discharge Details Clinical Impression: Pain, dental Primary Care Provider: Alverto Ferrer ED Provider: Snow Juarez Home Meds and New Rx's Prescriptions: New amoxicillin-pot clavulanate 875-125 mg tablet 1 tab PO BID Qty: 28 0RF Continued ibuprofen 200 mg capsule 200 mg PO Q6H PRN Discontinued gabapentin 300 mg capsule 300 mg PO .COMPLEX Qty: 90 1RF Rx Instructions: 300 mg orally in morning, 600mg at bedtime; Discharge Instructions Instructions: Toothache (ED) Additional Instructions: Tylenol and ibuprofen over the counter for pain; follow the directions on the bottle. Antibiotic twice a day until it is all gone. Call your dentist today to schedule an appointment for as soon as possible. Call your primary care doctor today to schedule an appointment for within the next 3 days to followup on your visit here. Discuss your blood pressure at that visit as it is high here today. Return to the emergency department for new or worsening symptoms including fever, neck pain, vomiting, inability to open your mouth, difficultly swallowing, or if you have any other concerns. Stand Alone Forms: Work Release Discharge Data Discharge Date/Time-TO BE ENTERED AT DEPARTURE: 12/16/23 05:02 HPI General Mode of arrival: ambulatory . Date/Time Provider Initiated Documentation: 12/16/23 04:07 . Limitations to Documentation: no limitations . Information obtained by: patient . HPI Narrative: 33yo previously healthy male presenting with toothache. Pain started 2-3 days ago and has been persistent and worsening. Located in his right upper posterior teeth. Minimal improvement with home ibuprofen, pain is keeping him awake. The right side of his face seems swollen. No neck pain or difficultly swallowing. No fevers, chills, rash, nausea, vomiting, or other concerns. Otherwise in his usual state of health. Related Data Home Medications Medication Instructions Recorded Confirmed ibuprofen 200 mg capsule 200 mg PO Q6H PRN 08/30/19 12/16/23 amoxicillin 875 mg-potassium 1 tab PO BID #28 tabs 12/16/23 clavulanate 125 mg tablet Previous Rx's Medication Instructions Recorded amoxicillin 875 mg-potassium 1 tab PO BID #28 tabs 12/16/23 clavulanate 125 mg tablet Allergies Allergy/AdvReac Type Severity Reaction Status Date / Time No Known Allergies Allergy Verified 12/16/23 04:15 General PEREZ: 3 Review of Systems Narrative: see HPI Exam Narrative Exam Narrative: General: Alert, well appearing, well nourished, in no acute distress. Head: Normocephalic, atraumatic. No visible facial swelling. Neck: Trachea midline, ?Neck supple. Nontender. ENT: ?MMM.? No oropharygeal lesions or exudate. Uvula midline. Poor dentition, multiple cracked and carious teeth. #2 #3 #4 all painful with percussion. No visible drainable apical or periapical abscess. Cardiac: ?No cyanosis. Well perfused. Resp: No respiratory distress. Speaking in full sentences. Abd: ?Non-distended Extremities: ?No deformities.? No peripheral edema. Neurologic: GCS 15. ? Moves all extremities freely against gravity Medical Decision Making 33yo previously healthy male presenting with toothache. Pain started 2-3 days ago and has been persistent and worsening. Systemically well. Hypertensive on arrival, vital signs otherwise reassuring. Well appearing on exam. Not septic. Poor denittion, multiple cracked and carious teeth, #2-4 painful with percussions. No visible drainable abscess. Exam not suggestive of deep space neck infection/Jp's/etc. Would not get labs or CT imaging at this time. Tylenol & toradol for pain, started on course of amox/clauv. Instructed to followup with a dentist regarding teeth and PCP regarding hypertension. Discharged home; discharge instructions and return precautions were reviewed with patient who verbalized understanding. All questions were answered and he is in full agreement with the plan. Quality:SDOH Health Related Social Needs: No Data to Display PFSH All Active Problems (Updated 12/16/23 @ 04:13 by Snow Juarez MD) Pain, dental (Acute) Smoker unmotivated to quit (Acute) Back pain (Chronic) Medical History (Updated 12/16/23 @ 04:13 by Snow Juarez MD) Perineal abscess Surgical History Status post incision and drainage (~08/28/19) Family History Mother Depression Hypertension Father Alcohol abuse Depression Substance abuse Sister Alcohol abuse Depression Substance abuse Maternal Grandfather Alcohol abuse Cancer Hypertension Paternal Grandfather Alcohol abuse Asthma Cancer Depression Maternal Grandmother Alcohol abuse Depression Diabetes Hypertension Paternal Grandmother Cancer Hypertension Social History Smoking/Tobacco Use Status: Current every day Tobacco Type: cigarettes Tobacco: How many years used: 11 Quit status: not considering quitting Second Hand Exposure: Yes Counseling given: provider counseling Smoking risk assessment performed?: Yes Alcohol Intake: never Drug use: Daily Substance use type: marijuana Caregiver/Support person: No Household members: significant other Housing: apartment Communication Needs: None Do you need help understanding health information?: Often Pets and animals: Yes Pets and animals: dog(s) Sexually active: Yes Do you think of yourself as: straight/heterosexual Current gender identity: male What is your relationship status?: living with partner How often do you talk on the phone with friends or family?: three or more times per week How often do you get together with friends or relatives?: once per week How often do you attend denominational or worship services?: decline to answer Do you belong to any clubs or organized social groups?: no Panel score (0-1 are the most socially isolated patients): 2 What type of physical activity do you participate in: none Frequency: does not exercise Anna/Temple: None Special anna needs: No Seatbelt use: sometimes Helmet use: Yes Helmet use: always Drive intox or ride w/intox escort car driver: No Do you feel safe at home: Yes Do you feel safe in your relationship?: Yes Victim of physical abuse: No Victim of emotional abuse: No Victim of sexual abuse: No Would you like helpful sources: No
[2023-12-16 04:17] VITALS: BP 166/106; PULSE 78; RESP 16; TEMP 36.7; O2SAT 98
[2023-12-16] MEDS: Ketorolac 15 MG/ML VIAL IM (04:30)
[2023-12-16] MEDS: Acetaminophen 500 MG TAB 1000 MG PO (04:31)
[2023-12-16] MEDS: Amoxicillin 875/Clav. 125 TAB PO (04:31)
[2023-12-16 05:02] VITALS: BP 166/106; PULSE 89; RESP 16; TEMP 36.8; O2SAT 98
== END 2023-12-16 05:02 | disposition home or self-care (01) ==
LOC: ER 04:41
PROVIDERS: Emergency Provider Student in an Organized Health Care Education/Training Program; PCP Family Medicine
DX: R68.84 Jaw pain (principal); K08.89 Other specified disorders of teeth and supporting structures
CPT/HCPCS: 96372; 99284; 99283; J1885

== ENCOUNTER 2024-01-08 10:48 | Emergency (ER) | payer MEDICAID, SELFPAY ==
[2024-01-08 10:59] VITALS: BP 145/102; PULSE 69; RESP 16; TEMP 37.1; O2SAT 99
--- NOTE | 2024-01-08 12:12 | ED.GENADUL_ITS ---
Discharge Plan Disposition Patient Disposition: Home Condition: Stable Discharge Details Clinical Impression: Migraine syndrome Primary Care Provider: Alverto Ferrer ED Provider: Ty Raza Home Meds and New Rx's Prescriptions: Continued gabapentin 300 mg capsule 300 mg PO BID Qty: 60 1RF ibuprofen 200 mg capsule 200 mg PO Q6H PRN Discharge Instructions Instructions: Migraine Headache (ED) Additional Instructions: You were seen in the emergency department for your migraine headache. He had no abnormal neurological symptoms or signs. His blood work redrew is benign without any indication for infection or metabolic abnormality. We provided you with a cocktail of medications that are effective at treating migraine. This included Tylenol, and anti-inflammatory called ketorolac, Benadryl, 1 dose of a long-acting steroid, an antinausea medicine called Reglan, as well as a migraine medicine called sumatriptan. Please talk to your regular doctor about possibly getting prescriptions long- term for Reglan and sumatriptan if you have recurrent migraine. Otherwise just try to take 1000 mg of Tylenol and 400 mg of ibuprofen, drink 3 to 4 glasses of water for aggressive hydration, and 1 tablet of Benadryl for any onset of migraine headache. Please return to the emergency department for any severe sudden increase in headaches, neurologic abnormalities like weakness, tingling, sensory deficits, visual changes, vertigo, palpitations or chest pain or gait abnormalities. Stand Alone Forms: Work Release Referrals: Alverto Ferrer MD [Primary Care Provider] - Discharge Data Discharge Date/Time-TO BE ENTERED AT DEPARTURE: 01/08/24 13:55 HPI General Date/Time Provider Initiated Documentation: 01/08/24 11:03 . HPI Narrative: 33 year-old male presents to ED today by POV/ambulating with a chief complaint of R sided headache with onset Thursday. Quality described as R sided headache behind his eye- with photosensitivity, one episode of vomiting yesterday, no radiation to visual changes, confusion, fever neck stiffness, cough, shortness of breath, palpitations, syncope. Severity is described as severe. Palliating factors include subtherapeutic APAP/NSAIDs. Provoking factors include nothing specific. Patient not anticoagulated. Related Data Home Medications Medication Instructions Recorded Confirmed ibuprofen 200 mg capsule 200 mg PO Q6H PRN 08/30/19 01/08/24 gabapentin 300 mg capsule 300 mg PO BID #60 caps 12/23/23 01/08/24 Previous Rx's Medication Instructions Recorded gabapentin 300 mg capsule 300 mg PO BID #60 caps 12/23/23 Allergies Allergy/AdvReac Type Severity Reaction Status Date / Time No Known Allergies Allergy Verified 12/23/23 09:48 General Stated Complaint: Headache PEREZ: 3 Review of Systems All systems reviewed & are unremarkable except as noted in HPI and below Exam Narrative Exam Narrative: GENERAL APPEARANCE: Well-nourished, non-toxic, awake and alert, atraumatic, no acute distress. SKIN: Warm, pink, dry, intact, without rashes/lesions/ulcerations. HEAD: Normocephalic, atraumatic, normal hair distribution for gender/age. EYES: Pupils PERRLA, EOMs intact without nystagmus, normal conjunctiva, no exudates on lids/lashes. ENT: Nares patent, no circumoral cyanosis, no facial swelling NECK: Supple, trachea midline, painless cervical ROM. LUNGS/CHEST: Non-labored respirations, normal A/P diameter, symmetrical expansion, no chest wall deformity HEART (CV/PV): No peripheral edema, no JVD. ABDOMEN: Soft, non-distended, no guarding. MSK: Normal ROM, no swelling/deformity to bilateral UEs or LEs, moving all extremities without weakness, no cyanosis, spine midline without tenderness, normal curvature. NEURO: Mental Status AAOx4 - alert to person, place, time, events No facial droop, no forehead involvement. Motor: No focal weakness - strength 5/5 in bilateral UEs and LEs, proximal and distal, symmetric. Sensory: sensation intact to light touch globally. Gait normal: patient ambulated without ataxia into ED room. PSYCH: euthymic, cooperative, pleasant, appropriate speech Course Vital Signs Vital signs: Vital Signs Temperature 37.1 C 01/08/24 10:59 Pulse 69 01/08/24 10:59 Respiratory Rate 16 01/08/24 10:59 Blood Pressure 145/102 H 01/08/24 10:59 Pulse Oximetry 99 01/08/24 10:59 Temperature 37.1 C 01/08/24 10:59 Temperature Source Tympanic 01/08/24 10:59 Pulse 69 01/08/24 10:59 Respiratory Rate 16 01/08/24 10:59 Blood Pressure 145/102 H 01/08/24 10:59 Blood Pressure Position Sitting 01/08/24 10:59 Pulse Oximetry 99 01/08/24 10:59 Oxygen Delivery Method Room Air 01/08/24 10:59 Oxygen Flow Rate 0 01/08/24 10:59 Pain Level 7 01/08/24 10:59 Medical Decision Making This dictation utilizes [id number] dictation software and may contain unedited grammatical errors. 33 y/o M presents to ED today with a chief complaint of right-sided headache since Thursday, no focal neurologic abnormalities reported, does report 1 episode of vomiting yesterday due to headache pain. Denies any fever or neck stiffness, has history of headaches. Patients' medical history: Negative, otherwise healthy. Family and social history: Noncontributory. Pertinent exam findings / vital signs include neuro intact, no nuchal rigidity, stable vitals. Differential / pathologies of concern include migraine, tension headache, unlikely intracranial abnormality. Diagnostic studies of: -CBC/CMP - no acute abnormalities to suggest infection. Interventions of: -IVF, IV Reglan, Dexamethasone, Benadryl, Tylenol, Toradol, PO Sumatriptan with complete relief of symptoms. ED Course/Assessment/Plan: 33-year-old male presents with a classic right-sided headache of migraine syndrome, I discussed his low risk for infection or neurological pathology. He agreed for trial of relief of headache with migraine medicines which completely relieved his symptoms to where he wished to be discharged. I did corrections counselor on strict return criteria for any continuing headaches especially with neurological abnormalities leg weakness, visual changes, dizziness, vertigo, I stressed strict return criteria for fever especially with neck stiffness. Findings not consistent with meningismus, CVA, ICH, TIA. Disposition of Migraine Syndrome. Patient verbalized understanding of the plan and return to ED criteria and engaged in shared decision making. Medical Records Medical records reviewed: Yes I reviewed the patient's medical records. Lab Data Lab results reviewed: Yes I reviewed the patient's lab results. Labs: Laboratory Tests Range/Units 01/08/24 12:43 WBC (4.4-10.8) 10^3/uL 6.71 RBC (4.36-5.78) 10^6/uL 5.50 Hgb (13.5-17.5) g/dL 16.2 Hct (40.0-50.0) % 46.4 MCV (80-95) fL 84 MCH (27.0-33.0) pg 29.5 MCHC (32.0-36.0) % 34.9 RDW (11.8-14.1) % 12.2 Plt Count (130-400) 10^3/uL 143 MPV (8.0-11.0) fL 10.7 Immature Gran % % 0.3 Neutrophils % % 64.9 Lymphocytes % % 24.9 Monocytes % % 6.6 Eosinophils % % 2.7 Basophils % % 0.6 Nucleated RBC % (0.0-0.3) % 0.0 Absolute Neutrophils (1.2-6.7) 10^3/uL 4.36 Absolute Lymphocytes (1.2-3.4) 10^3/uL 1.67 Absolute Monocytes (0.1-0.8) 10^3/uL 0.44 Absolute Eosinophils (0.0-0.7) 10^3/uL 0.18 Absolute Basophils (0.0-0.2) 10^3/uL 0.04 Sodium (136-145) mmol/L 141 Potassium (3.5-5.1) mmol/L 4.1 Chloride (98-107) mmol/L 106 Carbon Dioxide (21.0-32.0) mmol/L 26.1 Anion Gap (3-11) mmol/L 8.9 BUN (7-18) mg/dL 11 Creatinine (0.70-1.30) mg/dL 0.9 Est GFR (CKD-EPI 2020) (mL/min/1.73m2) 117.10 Glucose (74-106) mg/dL 106 Calcium (8.5-10.1) mg/dL 9.0 Total Bilirubin (0.2-1.0) mg/dL 0.3 AST (15-37) U/L 5 L ALT (16-63) U/L 19 Alkaline Phosphatase (46-116) U/L 79 Total Protein (6.4-8.2) g/dL 7.3 Albumin (3.4-5.0) g/dL 4.1 Quality:SDOH Health Related Social Needs: No Data to Display PFSH All Active Problems (Updated 01/08/24 @ 13:33 by DEBBIE Putnam) Migraine syndrome (Acute) Elevated blood pressure reading (Acute) Pain, dental (Acute) Smoker unmotivated to quit (Acute) Back pain (Chronic) Medical History (Updated 01/08/24 @ 13:33 by DEBBIE Putnam) Perineal abscess Surgical History Status post incision and drainage (~08/28/19) Family History Mother Depression Hypertension Father Alcohol abuse Depression Substance abuse Sister Alcohol abuse Depression Substance abuse Maternal Grandfather Alcohol abuse Cancer Hypertension Paternal Grandfather Alcohol abuse Asthma Cancer Depression Maternal Grandmother Alcohol abuse Depression Diabetes Hypertension Paternal Grandmother Cancer Hypertension Social History Smoking/Tobacco Use Status: Current every day Tobacco Type: cigarettes Tobacco: How many years used: 11 Quit status: not considering quitting Second Hand Exposure: Yes Counseling given: provider counseling Smoking risk assessment performed?: Yes Alcohol Intake: never Drug use: Daily Substance use type: marijuana Caregiver/Support person: No Household members: significant other Housing: apartment Communication Needs: None Do you need help understanding health information?: Often Pets and animals: Yes Pets and animals: dog(s) Sexually active: Yes Do you think of yourself as: straight/heterosexual Current gender identity: male What is your relationship status?: living with partner How often do you talk on the phone with friends or family?: three or more times per week How often do you get together with friends or relatives?: once per week How often do you attend christianity or mandaeism services?: decline to answer Do you belong to any clubs or organized social groups?: no Panel score (0-1 are the most socially isolated patients): 2 What type of physical activity do you participate in: none Frequency: does not exercise Anna/Anabaptism: None Special anna needs: No Seatbelt use: sometimes Helmet use: Yes Helmet use: always Drive intox or ride w/intox national dedicated truck driver: No Do you feel safe at home: Yes Do you feel safe in your relationship?: Yes Victim of physical abuse: No Victim of emotional abuse: No Victim of sexual abuse: No Would you like helpful sources: No
[2024-01-08] MEDS: ACETAMINOPHEN 1,000 MG/100 ML BTL 400 MG IVPB (12:47)
[2024-01-08] MEDS: Metoclopramide 10 MG/2 ML VIAL IVP (12:48)
[2024-01-08] MEDS: diphenhydrAMINE 50 MG/ML VIAL 25 MG IVP (12:48)
[2024-01-08] MEDS: SUMAtriptan 25 MG TAB PO (12:48)
[2024-01-08] MEDS: Ketorolac 15 MG/ML VIAL IVP (12:48)
[2024-01-08] MEDS: Normal Saline 1,000 ML 1000 ML IV (12:48)
[2024-01-08] MEDS: Dexamethasone 10 MG/ML VIAL IVP (12:48)
[2024-01-08 12:50] LABS: Abs Immature Grans 0.02 10^3/uL (0.0-0.06); Absolute Basophil Count 0.04 10^3/uL (0.0-0.2); Absolute Eosinophil Count 0.18 10^3/uL (0.0-0.7); Absolute Lymphocyte Count 1.67 10^3/uL (1.2-3.4); Absolute Monocyte Count 0.44 10^3/uL (0.1-0.8); Absolute Neutrophil Count 4.36 10^3/uL (1.2-6.7); Basophils % 0.6 %; Eosinophils % 2.7 %; HCT 46.4 % (40.0-50.0); HGB 16.2 g/dL (13.5-17.5); Immature Grans % 0.3 %; Lymphocytes % 24.9 %; MCH 29.5 pg (27.0-33.0); MCHC 34.9 % (32.0-36.0); MCV 84 fL (80-95); MPV 10.7 fL (8.0-11.0); Monocytes % 6.6 %; Neutrophils % 64.9 %; Platelet Count 143 10^3/uL (130-400); RDW 12.2 % (11.8-14.1); RDW-SD 37.8 fL; WBC 6.71 10^3/uL (4.4-10.8)
[2024-01-08 13:03] LABS: ALT 19 U/L (16-63); AST 5 U/L (15-37); Albumin 4.1 g/dL (3.4-5.0); Alkaline Phosphatase 79 U/L (46-116); Anion Gap 8.9 mmol/L (3-11); BUN 11 mg/dL (7-18); Bilirubin, Total 0.3 mg/dL (0.2-1.0); CO2 26.1 mmol/L (21.0-32.0); CREATININE 0.9 mg/dL (0.70-1.30); Chloride 106 mmol/L (98-107); Glucose 106 mg/dL (74-106); Potassium 4.1 mmol/L (3.5-5.1); Sodium 141 mmol/L (136-145); Total Protein 7.3 g/dL (6.4-8.2)
[2024-01-08 13:50] VITALS: BP 120/84; PULSE 80; RESP 16; TEMP 36.8; O2SAT 98
== END 2024-01-08 13:55 | disposition home or self-care (01) ==
PROVIDERS: Emergency Provider Physician Assistant; PCP Family Medicine
DX: G43.809 Other migraine, not intractable, without status migrainosus (principal); F17.210 Nicotine dependence, cigarettes, uncomplicated
CPT/HCPCS: 80053; 96361; 96365; 99284; 85025; J0131; J1100; J1200; J1885; J2765

== ENCOUNTER 2024-06-19 08:14 | Emergency (ER) | payer MEDICAID, SELFPAY ==
[2024-06-19] VITALS (10 sets, daily range): BP systolic 135–150; BP diastolic 82–93; PULSE 57–75; RESP 18; TEMP 36.2; O2SAT 98–100
--- NOTE | 2024-06-19 08:30 | DI.RAD_ITS ---
Exam(s) XR CHEST 2V PA LATERAL EXAM: XR CHEST 2V PA LATERAL CLINICAL HISTORY: Cough TECHNIQUE: 2D digital imaging was performed of the chest. Two images were obtained. PA and lateral views were obtained. COMPARISON: CR,XR XR CHEST 2V PA LATERAL from 09/04/2022 FINDINGS: MEDIASTINUM: Normal. HEART: Normal. PULMONARY VASCULATURE: Normal. LUNGS: Clear. PLEURAL SPACE: No pleural effusion or pneumothorax. BONE:Within normal limits for the patient's age. OTHER FINDINGS:Normal. IMPRESSION: No acute pulmonary findings. DATA REPOSITORY: RADIATION DOSE DELIVERED:
--- NOTE | 2024-06-19 08:41 | ED.GENADUL_ITS ---
Discharge Plan Disposition Patient Disposition: Home Discharge Details Clinical Impression: Body aches Primary Care Provider: Nathan Diaz ED Provider: Placido Barry Home Meds and New Rx's Prescriptions: Continued ibuprofen 200 mg capsule 200 mg PO Q6H PRN gabapentin 300 mg capsule 300 mg PO BID Qty: 180 3RF Discharge Instructions Additional Instructions: You are seen in the emergency department for your body aches headache and low energy. Your swab was negative for COVID, RSV, and influenza. Your chest x-ray showed no sign of pneumonia. As we discussed if you develop vomiting that does not stop if you cannot eat or drink as result of nausea or if you have any other concerns please return to the emergency department. You are receiving a prescription for nausea medications you should take as directed. Please follow- up with your primary care provider next week. For your pain please take medications as follows: 1. Take acetaminophen (Tylenol), 1,000 mg (two 500 mg tabs) every 6 hours [2. Take ibuprofen (Advil), 400 mg every 6 hours.] Stand Alone Forms: Work Release Discharge Data Discharge Date/Time-TO BE ENTERED AT DEPARTURE: 06/19/24 09:58 HPI General Date/Time Provider Initiated Documentation: 06/19/24 08:17 . HPI Narrative: MDM This is an overall very well-appearing afebrile and not tachycardic 33-year-old male with complaints consistent with viral etiology for which patient will receive influenza RSV and COVID swab. No pain out of proportion to suggest necrotizing soft tissue infection. Given increased cases of pneumonia will obtain chest x-ray given cough and occasional shortness of breath. No recent tick bites to suggest increased risk for Lyme. Patient is nontoxic to suggest ehrlichiosis and anaplasmosis and denies any exposure to ticks on time in the [place] so I did not send a tick panel. Uvula midline so my suspicion is low for peritonsillar abscess. Good range of motion in neck so doubt retropharyngeal abscess. Handling secretions so my suspicion is low for epiglottitis. Nontoxic so doubt bacterial tracheitis. I considered meningitis however the patient has no nuchal rigidity no fevers and is nontoxic-appearing so I did not feel that he required a lumbar puncture. He has not been vomiting today and appears well- hydrated so do not feel he requires assessment of his electrolytes or any IV fluids. No B symptoms so my suspicion is low for malignancy. Soft nontender abdomen and no abdominal pain so I am not suspicious for appendicitis. Patient is not a drinker to suggest pancreatitis. Will reassess following chest x-ray and viral swab. Patient has been taking ibuprofen so we will treat with acetaminophen. Patient and I did discuss his elevated blood pressure reading. He reports that his blood pressure sometimes low and other times high. I advised PCP follow-up. 9:45 AM Chest x-ray read as negative for any acute cardiopulmonary process. Influenza COVID RSV swabs all negative. I met with the patient and explained that he most likely has a viral etiology and he should return to the emergency department if he develops worsening symptoms, could not eat or drink as result of nausea vomiting or if he has any other concerns. Otherwise I advised outpatient PCP follow-up. HPI This is a previously healthy 33-year-old smoker arriving emergency department via private vehicle in the setting of body aches intermittent headache nausea and fatigue for the past several days. Patient reports he has decreased energy. He was nauseous and occasionally vomited. He denies fevers. He has had some cough in the morning with some occasional shortness of breath. He is a daily smoker and occasionally uses marijuana. He denies routine ethanol. He denies sore throat but it notes that his throat occasionally gets scratchy. He denies abdominal pain shortness of breath and chest pain. He denies any recent tick bites anytime recently spent in the [place]. Exam General: Well-appearing in no acute distress speaking in complete sentences. Head: Normocephalic, atraumatic. Eye: Extraocular eye movements intact. No conjunctival injection. No scleral icterus. Ear, nose, mouth, throat: Grossly normal inspection. Normal voice, handling secretions normally. Uvula midline. No significant posterior oropharynx erythema. Neck: Trachea midline. Cardiovascular: Well-perfused distal extremities. Regular rate and rhythm Respiratory: Nonlabored respiration. Clear lungs bilaterally. Gastrointestinal: Nondistended abdomen. Soft nontender. Musculoskeletal: No edema. Moving all 4 extremities spontaneously. Skin: Normal for age and race, grossly normal temperature and turgor. No acute rash. Neurologic: Alert and appropriate, no apparent acute deficits. Psychiatric: Mood and manner are appropriate. Grooming and personal hygiene are appropriate. Related Data Home Medications ?Medication ?Instructions ?Recorded ?Confirmed ibuprofen 200 mg capsule 200 mg PO Q6H PRN 08/30/19 06/19/24 gabapentin 300 mg capsule 300 mg PO BID #180 caps 06/09/24 06/19/24 Previous Rx's ?Medication ?Instructions ?Recorded gabapentin 300 mg capsule 300 mg PO BID #180 caps 06/09/24 Allergies Allergy/AdvReac Type Severity Reaction Status Date / Time No Known Allergies Allergy Verified 06/19/24 08:20 General Stated Complaint: GenMedical PEREZ: 3 Course Vital Signs Vital signs: Vital Signs Temperature 36.2 C L 06/19/24 08:18 Pulse 75 06/19/24 08:18 Respiratory Rate 18 06/19/24 08:18 Blood Pressure 150/82 H 06/19/24 08:18 Pulse Oximetry 98 06/19/24 08:18 Temperature 36.2 C L 06/19/24 08:20 Temperature Source Temporal Artery Scan 06/19/24 08:20 Pulse 75 06/19/24 08:20 Respiratory Rate 18 06/19/24 08:22 Respiratory Effort Normal, Non-Labored 06/19/24 08:22 Respiratory Depth Normal 06/19/24 08:22 Respiratory Pattern Normal 06/19/24 08:22 Blood Pressure 150/82 H 06/19/24 08:20 Blood Pressure Position Sitting 06/19/24 08:20 Pulse Oximetry 98 06/19/24 08:20 Oxygen Delivery Method Room Air 06/19/24 08:20 Oxygen Flow Rate 0 06/19/24 08:20 Medical Decision Making Quality:SDOH Health Related Social Needs: No Data to Display PFSH All Active Problems (Updated 06/19/24 @ 09:45 by Placido Barry MD) Body aches (Acute) Elevated blood pressure reading (Acute) Smoker unmotivated to quit (Acute) Back pain (Chronic) Medical History (Updated 06/19/24 @ 09:45 by Placido Barry MD) Perineal abscess Surgical History Status post incision and drainage (~08/28/19) Family History Mother Depression Hypertension Father Alcohol abuse Depression Substance abuse Sister Alcohol abuse Depression Substance abuse Maternal Grandfather Alcohol abuse Cancer Hypertension Paternal Grandfather Alcohol abuse Asthma Cancer Depression Maternal Grandmother Alcohol abuse Depression Diabetes Hypertension Paternal Grandmother Cancer Hypertension Social History Smoking/Tobacco Use Status: Current every day Tobacco Type: cigarettes Tobacco: How many years used: 11 Quit status: not considering quitting Second Hand Exposure: Yes Counseling given: provider counseling Smoking risk assessment performed?: Yes Alcohol Intake: current Alcohol Intake frequency: holidays/special occasions only Drug use: Daily Substance use type: marijuana Caregiver/Support person: No Household members: significant other Housing: apartment Communication Needs: None Do you need help understanding health information?: Often Pets and animals: Yes Pets and animals: dog(s) Sexually active: Yes Do you think of yourself as: straight/heterosexual Current gender identity: male What is your relationship status?: living with partner How often do you talk on the phone with friends or family?: three or more times per week How often do you get together with friends or relatives?: once per week How often do you attend restorationist or confucianist services?: decline to answer Do you belong to any clubs or organized social groups?: no Panel score (0-1 are the most socially isolated patients): 2 What type of physical activity do you participate in: none Frequency: does not exercise Anna/Rastafarian: None Special anna needs: No Seatbelt use: sometimes Helmet use: Yes Helmet use: always Drive intox or ride w/intox tour driver: No Do you feel safe at home: Yes Do you feel safe in your relationship?: Yes Victim of physical abuse: No Victim of emotional abuse: No Victim of sexual abuse: No Would you like helpful sources: No
[2024-06-19] MEDS: Acetaminophen 500 MG TAB 1000 MG PO (08:55)
[2024-06-19 09:10] LABS: COVID-19 PCR Negative (Negative); Influenza A PCR Negative (Negative); Influenza B PCR Negative (Negative); RSV PCR Negative (Negative)
[2024-06-19 09:11] LABS: Source Nasopharynx
--- NOTE | 2024-06-19 09:25 | DI.VRAD_ITS ---
PROCEDURE INFORMATION: Exam: XR Chest Exam date and time: 06/19/2024 9:11 AM Age: 33 years old Clinical indication: Other: Cough TECHNIQUE: Imaging protocol: Radiologic exam of the chest. Views: 2 views. COMPARISON: CR XR CHEST 2V PA LATERAL 09/04/2022 9:09 PM FINDINGS: Lungs: Clear. No consolidation or pulmonary edema. Pulmonary vasculature is normal in caliber. Pleural spaces: No pleural effusion or pneumothorax. Heart/Mediastinum: Heart size and cardiomediastinal contours are normal. Bones/joints: Unremarkable. IMPRESSION: Normal study. Dictated and Authenticated by: Stephanie Wright MD. Ordering:STEPHY Cummins MD
[2024-06-19] MEDS: Ondansetron O.D.T. 4 MG TABEF, 3 TABS/BTL PO (09:54)
== END 2024-06-19 09:58 | disposition home or self-care (01) ==
PROVIDERS: Emergency Provider Emergency Medicine; PCP Nurse Practitioner Family
DX: M79.10 Myalgia, unspecified site (principal); R11.10 Vomiting, unspecified; F17.210 Nicotine dependence, cigarettes, uncomplicated
CPT/HCPCS: 87637; 99284; 71046; 99283

== ENCOUNTER 2025-02-19 00:35 | Emergency (ER) | payer MEDICAID, SELFPAY ==
[2025-02-19 00:44] VITALS: BP 134/88; PULSE 75; RESP 18; TEMP 36.5; O2SAT 99
--- NOTE | 2025-02-19 01:39 | W.ED.GENAD ---
Discharge Plan Disposition Patient Disposition: Home Condition: Good Discharge Details Clinical Impression: Pain, dental Primary Care Provider: Nathan Diaz ED Provider: Snow Juarez Home Meds and New Rx's Prescriptions: New clindamycin HCl [Cleocin HCl] 300 mg capsule 300 mg PO QID 7 Days Qty: 28 0RF Continued ibuprofen 200 mg capsule 200 mg PO Q6H PRN Discharge Instructions Instructions: Dental Pain ED Additional Instructions: Antibiotic four times a day for the next 7 days. Tylenol and ibuprofen over the counter for pain; follow the directions on the bottle. Call a dentist in the morning to schedule an appointment to be seen as soon as possible; a list has been provided to you. Return to the emergency department for new or worsening symptoms including fever, worsening pain/swelling, neck pain, difficulty swallowing, or if you have any other concerns. HPI General Mode of arrival: ambulatory. Date/Time Provider Initiated Documentation: 02/19/25 00:47. Limitations to Documentation: no limitations. Information obtained by: patient. HPI Narrative: 34yo previously healthy male presenting with left upper dental pain. Started three days ago, constant, unrelieved by home ibuprofen. Feels like the area is swollen. No fevers, neck pain, difficulty swallowing, or other concerns. Related Data Home Medications ?Medication ?Instructions ?Recorded ?Confirmed ibuprofen 200 mg capsule 200 mg PO Q6H PRN 08/30/19 02/19/25 clindamycin HCl 300 mg capsule 300 mg PO QID 7 days #28 caps 02/19/25 (Cleocin HCl) Previous Rx's ?Medication ?Instructions ?Recorded clindamycin HCl 300 mg capsule 300 mg PO QID 7 days #28 caps 02/19/25 (Cleocin HCl) Allergies Allergy/AdvReac Type Severity Reaction Status Date / Time No Known Allergies Allergy Verified 02/19/25 00:49 General Stated Complaint: DentalOral PEREZ: 4 Review of Systems Narrative: see HPI Exam Narrative Exam Narrative: General: Alert, well appearing, well nourished, in no acute distress. Head: Normocephalic, atraumatic Neck: Trachea midline, ?Neck supple. ENT: ?Very slight left facial swelling. MMM.? No oropharygeal lesions or exudate. No evident intraoral abscess. Poor dentition. Left upper molars and premolars TTP. Cardiac: ?RRR Resp: Speaking in full sentences. Abd: ?Non-distended Extremities: ?No deformities.? No peripheral edema. Neurologic: GCS 15. ? Moves all extremities freely against gravity Course Vital Signs Vital signs: Vital Signs Temperature 36.5 C 02/19/25 00:44 Pulse 75 02/19/25 00:44 Respiratory Rate 18 02/19/25 00:44 Blood Pressure 134/88 02/19/25 00:44 Pulse Oximetry 99 02/19/25 00:44 Temperature 36.5 C 02/19/25 00:44 Temperature Source Tympanic 02/19/25 00:44 Pulse 75 02/19/25 00:44 Respiratory Rate 18 02/19/25 00:44 Blood Pressure 134/88 02/19/25 00:44 Pulse Oximetry 99 02/19/25 00:44 Pain Level 6 02/19/25 00:44 Medical Decision Making 34yo previously healthy male presenting with left upper dental pain. Systemically well. Vital signs reassuring on arrival. Very slight left facial swelling on exam, no evident intraoral abscess, left maxillary molars and premolars TTP. Not septic. Not suggestive of Lemmieres, Jp's, deep space neck infection, intraoral abscess, buccal space infection; no indication for labs or CT imaging. Will give dose of toradol here and prescribe course of clindamycin; advised dental followup. Discharged home; discharge instructions and return precautions were reviewed with patient who verbalized understanding. All questions were answered and he is in full agreement with the plan. PFSH All Active Problems (Updated 02/19/25 @ 01:39 by Snow Juarez MD) Pain, dental (Acute) Elevated blood pressure reading (Acute) Smoker unmotivated to quit (Acute) Back pain (Chronic) Medical History (Updated 02/19/25 @ 01:39 by Snow Juarez MD) Perineal abscess Surgical History Status post incision and drainage (~08/28/19) Family History Mother Depression Hypertension Father Alcohol abuse Depression Substance abuse Sister Alcohol abuse Depression Substance abuse Maternal Grandfather Alcohol abuse Cancer Hypertension Paternal Grandfather Alcohol abuse Asthma Cancer Depression Maternal Grandmother Alcohol abuse Depression Diabetes Hypertension Paternal Grandmother Cancer Hypertension Social History Smoking/Tobacco Use Status: Current every day Tobacco Type: cigarettes Tobacco: How many years used: 11 Quit status: not considering quitting Second Hand Exposure: Yes Counseling given: provider counseling Smoking risk assessment performed?: Yes Alcohol Intake: current Alcohol Intake frequency: holidays/special occasions only Drug use: Daily Substance use type: marijuana Caregiver/Support person: No Household members: significant other Housing: apartment Communication Needs: None Do you need help understanding health information?: Often Pets and animals: Yes Pets and animals: dog(s) Sexually active: Yes Do you think of yourself as: straight/heterosexual Current gender identity: male What is your relationship status?: living with partner How often do you talk on the phone with friends or family?: three or more times per week How often do you get together with friends or relatives?: once per week How often do you attend confucianism or islam services?: decline to answer Do you belong to any clubs or organized social groups?: no Panel score (0-1 are the most socially isolated patients): 2 What type of physical activity do you participate in: none Frequency: does not exercise Anna/Orthodox: None Special anna needs: No Seatbelt use: sometimes Helmet use: Yes Helmet use: always Drive intox 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
[2025-02-19] MEDS: Clindamycin 300 MG CAP PO (01:48)
[2025-02-19 01:52] VITALS: PULSE 64; RESP 18; O2SAT 99
== END 2025-02-19 01:52 | disposition home or self-care (01) ==
PROVIDERS: Emergency Provider Student in an Organized Health Care Education/Training Program; PCP Nurse Practitioner Family
DX: K08.89 Other specified disorders of teeth and supporting structures (principal); F17.210 Nicotine dependence, cigarettes, uncomplicated
CPT/HCPCS: 99283